=== PATIENT | female | born 1985 | race Caucasian/White ===

== ENCOUNTER 2025-04-25 14:23 | Outpatient (CLI) | payer BC, SELFPAY ==
[2025-04-28 21:44] LABS: HPV Source Cervix
[2025-05-01 09:00] LABS: Pap Test Digital Imaging Done
== END 2025-04-25 14:24 | disposition home or self-care (01) ==
PROVIDERS: Visit Provider Obstetrics & Gynecology
DX: N93.9 Abnormal uterine and vaginal bleeding, unspecified (principal); Z12.4 Encounter for screening for malignant neoplasm of cervix; R30.0 Dysuria
CPT/HCPCS: 84443; 87086; 87624; 87625; 88141; 88142; 88175